=== PATIENT | male | born 1995 | race Caucasian/White ===

== ENCOUNTER 2021-08-06 12:25 | Outpatient (CLI) | payer BC, OTHER | END 2021-08-06 12:26 | disposition home or self-care (01) | LOC: EEG 12:25 | PROVIDERS: ATTEND Psychiatry & Neurology Neurology | DX: G04.81 Other encephalitis and encephalomyelitis (principal) | CPT/HCPCS: 95700; 95816; 95957 ==

== ENCOUNTER 2021-09-13 07:30 | Outpatient (CLI) | payer BC ==
[2021-09-13] MEDS ORDERED: Gadobenate Dimeglumine 529 MG/1 ML (20ML VIAL) ONE (08:00)
== END 2021-09-13 07:31 | disposition home or self-care (01) ==
LOC: BICMRI 07:30
PROVIDERS: ATTEND Psychiatry & Neurology Neurology
DX: B27.90 Infectious mononucleosis, unspecified without complication (principal)
CPT/HCPCS: 70553; A9577